=== PATIENT | male | born 1970 | race Caucasian/White ===

== ENCOUNTER 2019-10-19 23:31 | Emergency (ER) | payer OTHER ==
[~2019-10-19] VITALS: Ht 177.8 cm; Wt 93.9 kg
[2019-10-19 23:41] VITALS: Ht 177.8 cm; Wt 93.9 kg
[2019-10-20 02:10] VITALS: BP 162/104
== END 2019-10-20 02:10 | disposition home or self-care (01) ==
LOC: ED 23:31
DX: S16.1XXA Strain of muscle, fascia and tendon at neck level, initial encounter (principal); S00.83XA Contusion of other part of head, initial encounter; S00.212A Abrasion of left eyelid and periocular area, initial encounter; S00.511A Abrasion of lip, initial encounter; Y04.0XXA Assault by unarmed brawl or fight, initial encounter; Y93.89 Activity, other specified; Y92.89 Other specified places as the place of occurrence of the external cause; Y99.8 Other external cause status